=== PATIENT | female | born 1980 | race Hispanic/Latino ===

== ENCOUNTER 2022-12-17 11:44 | Emergency (ER) | payer SELFPAY ==
[~2022-12-17] VITALS: Ht 170.2 cm; Wt 99.8 kg
[2022-12-17] MEDS ORDERED: PREDNISONE50 MG PO (11:57)
[2022-12-17] MEDS ORDERED: FAMOTIDINE 20 MG TAB PO ONE (12:00)
[2022-12-17] MEDS ORDERED: DEXAMETHASONE SOD PHOS 10 MG/1 ML VIAL IM ONE (12:00)
[2022-12-17] MEDS ORDERED: DEXAMETHASONE SOD PHOS 10 MG/1 ML VIAL ONE (12:08)
[2022-12-17] MEDS ORDERED: FAMOTIDINE 20 MG TAB ONE (12:08)
[2022-12-17 13:23] VITALS: BP 156/78
== END 2022-12-17 12:00 | disposition home or self-care (01) ==
LOC: ER 12:00
DX: L29.9 Pruritus, unspecified (principal); T50.5X5A Adverse effect of appetite depressants, initial encounter; Y92.89 Other specified places as the place of occurrence of the external cause
CPT/HCPCS: 99284; J1100

== ENCOUNTER 2024-09-16 12:08 | Emergency (ER) | payer OTHER ==
[~2024-09-16] VITALS: Ht 162.6 cm; Wt 87.5 kg
[~2024-09-16 12:08] MED LIST: AZITHROMYCIN250 MG PO; IBUPROFEN200 MG PO; MECLIZINE HCL12.5 MG PO; PHENTERMINE H37.5 MG; PREDNISONE50 MG PO; TAMIFLU75 MG PO; THERAFLU FLU &1 EAC1 PO
[2024-09-16 12:33] VITALS: TEMP 98
[2024-09-16 13:27] LABS: COLOR,URINE YELLOW (YELLOW)
[2024-09-16 13:28] LABS: BILIRUBIN,URINE NEGATIVE (NEGATIVE); CLARITY,URINE CLEAR (CLEAR); GLUCOSE, URINE NEGATIVE (NEGATIVE); KETONES,URINE TRACE (NEGATIVE); LEUKOCYTE ESTERASE ,URINE NEGATIVE (NEGATIVE); NITRITE,URINE NEGATIVE (NEGATIVE); PH,URINE 6.5 (5 - 7); PROTEIN,URINE DIPSTICK NEGATIVE (NEGATIVE); URINE UROBILINOGEN 0.2 mg/dL (0.2 - 1)
[2024-09-16 13:41] LABS: BACTERIA,URINE FEW /HPF; EPITHELIAL CELLS,URINE FEW /LPF; RBC,URINE 0-5 /HPF (0-5); WBC,URINE (MAN) 0-5 /HPF (0-5)
[2024-09-16 15:15] VITALS: PULSE 72; RESP 16; O2SAT 100
== END 2024-09-16 15:32 | disposition home or self-care (01) ==
LOC: ER 12:31
DX: K60.2 Anal fissure, unspecified (principal)
CPT/HCPCS: 74019; 81001; 99283